=== PATIENT | female | born 1985 | race Caucasian/White ===

== ENCOUNTER 2019-08-13 23:34 | Emergency (ER) | payer SELFPAY ==
--- NOTE | 2019-08-13 23:49 | ER Document Report ---
ED Medical Screen (RME) - General Chief Complaint: Alcohol Withdrawl Stated Complaint: NEEDS MEDICAL CLEARANCE Time Seen by Provider: 08/13/19 23:44 - HPI Notes: 08/13/19 23:46 33 year old female to the ED with mobile crisis unit worker from [facility] for medical clearance. She was at [facility] trying to complete ETOH detox but blew a .41. SHe has a history of seizure with ETOH withdrawal. Thus, [facility] sent her here for medical clearance. She denies SI or HI. She does smokes. She also shoots heroin and her last use was today. She states she drinks a case of beer a day. I performed a medical screening on the patient and have determined she will need further evaluation and management by main side provider. I have placed orders to expedite her care [place].
[2019-08-13] MEDS ORDERED: ONDANSETRON 4 MG TAB.RAPDIS PO ONE (23:50)
[2019-08-13] MEDS ORDERED: NICOTINE 14 MG/24 HR PATCH.TD24 TD ONE (23:54)
[2019-08-14] MEDS ORDERED: NORMAL SALINE 1000 ML 1,000 ML IV ONE (00:25)
[2019-08-14] MEDS ORDERED: ONDANSETRON HCL INJ/PF 4 MG/2 ML SDV IV ONE (00:25)
[2019-08-14 01:08] LABS: ABSOLUTE BASOPHILS # (AUTO) 0.1 10^3/uL (0.0-0.2); ABSOLUTE EOSINOPHILS # (AUTO) 0.2 10^3/uL (0.0-0.6); ABSOLUTE LYMPHOCYTES (AUTO) 2.6 10^3/uL (0.5-4.7); ABSOLUTE NEUT (AUTO) 2.4 10^3/uL (1.7-8.2); BASOPHILS % (AUTO) 1.3 % (0-2); HEMATOCRIT 31.3 % (36.0-47.0); HEMOGLOBIN 10.2 g/dL (12.0-15.5); LYMPHOCYTES % (AUTO) 41.7 % (13-45); MEAN CORPUSCULAR HEMOGLOBIN 26.6 pg (27.0-33.4); MEAN CORPUSCULAR HGB CONC 32.4 g/dL (32.0-36.0); MEAN CORPUSCULAR VOLUME 82 fl (80-97); MONOCYTES % (AUTO) 15.7 % (3-13); PLATELET COUNT 189 10^3/uL (150-450); RED BLOOD COUNT 3.82 10^6/uL (3.72-5.28); RED CELL DISTRIBUTION WIDTH 18.2 % (11.5-14.0); SEGMENTED NEUTROPHILS % (AUTO) 38.3 % (42-78); TOTAL CELLS COUNTED % (AUTO) 100 %; WHITE BLOOD COUNT 6.3 10^3/uL (4.0-10.5)
[2019-08-14 01:41] LABS: ALBUMIN 4.1 g/dL (3.5-5.0); ALKALINE PHOSPHATASE 137 U/L (38-126); ANION GAP 9 (5-19); ASPARTATE AMINO TRANSFERASE 154 U/L (14-36); BILIRUBIN,DIRECT 0.2 mg/dL (0.0-0.4); BILIRUBIN,TOTAL 0.4 mg/dL (0.2-1.3); BLOOD UREA NITROGEN 8 mg/dL (7-20); CALCIUM 8.9 mg/dL (8.4-10.2); CARBON DIOXIDE 26 mmol/L (22-30); CHLORIDE 110 mmol/L (98-107); GLUCOSE 100 mg/dL (75-110); POTASSIUM 4.7 mmol/L (3.6-5.0); TOTAL PROTEIN 8.8 g/dL (6.3-8.2)
[2019-08-14 01:49] LABS: ALCOHOL 408 mg/dL (NONE DETECTED)
[2019-08-14 02:03] LABS: APPEARANCE,URINE CLEAR; BILIRUBIN,URINE NEGATIVE (NEGATIVE); COLOR,URINE YELLOW; GLUCOSE, URINE NEGATIVE (NEGATIVE); KETONES,URINE NEGATIVE (NEGATIVE); LEUKOCYTE ESTERASE,URINE NEGATIVE (NEGATIVE); NITRITE,URINE NEGATIVE (NEGATIVE); PROTEIN,URINE NEGATIVE (NEGATIVE); URINE SPECIFIC GRAVITY 1.011; UROBILINOGEN,URINE NEGATIVE mg/dL (<2.0)
[2019-08-14] MEDS ORDERED: HALOPERIDOL LACTATE INJ 5 MG/1 ML VIAL IM ONE (02:22)
[2019-08-14] MEDS ORDERED: LORAZEPAM INJ 2 MG/1 ML VIAL IM ONE (02:23)
--- NOTE | 2019-08-14 02:25 | ER Document Report ---
ED Substance Abuse / Acc. OD - General Chief Complaint: Alcohol Withdrawl Stated Complaint: NEEDS MEDICAL CLEARANCE Time Seen by Provider: 08/13/19 23:44 Information source: Patient Notes: Ms. Rubio is a 33 yo F w/ PMH alcohol abuse, heroin abuse and remote history of alcohol withdrawal seizures presenting to the ED after attempting to go to [facility] for rehab for abdominal pain and medical clearance. Patient states her abdominal pain has been going on for approximately a week now. She is had daily episodes of bilious vomiting at least 1-2 every morning. Pain does worsen with eating. She states she drinks approximately 30 beers daily sometimes more. She also uses heroin daily approximately 1-3 bags, last use was earlier today with one bag of "blue" heroin which is reportedly the highest concentration or stre ngth. Patient denies any chest pain, cough, shortness of breath. No fever or she reports subjective chills. She denies any dysuria or increased urinary frequency. She does endorse ongoing daily vomiting. She also endorses dark black stools daily. Patient denies any lightheadedness or blood in her vomitus. - Related Data Allergies/Adverse Reactions: No Known Allergies Allergy (Unverified 08/14/19 00:49) Past Medical History - Social History Smoking Status: Current Every Day Smoker Cigarette use (# per day): Yes - 1ppd Frequency of alcohol use: case of beer a day Drug Abuse: Heroin Family History: Reviewed & Not Pertinent Patient has suicidal ideation: No Patient has homicidal ideation: No Review of Systems - Review of Systems Constitutional: See HPI EENT: No symptoms reported Cardiovascular: No symptoms reported Respiratory: No symptoms reported Gastrointestinal: See HPI Genitourinary: No symptoms reported Female Genitourinary: No symptoms reported Musculoskeletal: No symptoms reported Skin: No symptoms reported Hematologic/Lymphatic: No symptoms reported Neurological/Psychological: No symptoms reported Physical Exam - Vital signs Vitals: Temp Pulse Resp BP Pulse Ox 98.1 F 83 18 119/81 97 08/13/19 23:47 08/13/19 23:47 08/13/19 23:47 08/13/19 23:47 08/13/19 23:47 Interpretation: Normal - General General appearance: Appears well, Alert - HEENT Head: Normocephalic, Atraumatic Eyes: Normal Pupils: PERRL - Respiratory Respiratory status: No respiratory distress Chest status: Nontender Breath sounds: Normal Chest palpation: Normal - Cardiovascular Rhythm: Regular Heart sounds: Normal auscultation Murmur: No - Abdominal Inspection: Normal Distension: No distension Bowel sounds: Normal Tenderness: Nontender Organomegaly: No organomegaly - Rectal Tenderness: No Stool: Heme negative - Brown stool guaiac negative Hemorrhoids: Internal - Back Back: Normal, Nontender - Extremities General upper extremity: Normal inspection, Nontender, Normal color, Normal ROM, Normal temperature General lower extremity: Normal inspection, Nontender, Normal color, Normal ROM, Normal temperature, Normal weight bearing. No: Harinder's sign - Neurological Neuro grossly intact: Yes Cognition: Normal Orientation: AAOx4 Wilson Coma Scale Eye Opening: Spontaneous Wilson Coma Scale Verbal: Oriented Davilla Coma Scale Motor: Obeys Commands Wilson Coma Scale Total: 15 Speech: Normal Motor strength normal: LUE, RUE, LLE, RLE Sensory: Normal - Psychological Associated symptoms: Normal affect, Normal mood - Skin Skin Temperature: Warm Skin Moisture: Dry Skin Color: Other - Track pelayo noted to the left dorsal forearm as well as left antecubital fossa. Patient also has bilateral leg wounds, a few track pelayo and diffuse turgor to bilateral legs. Course - Re-evaluation Re-evalutation: Patient is generally well-appearing and nontoxic. Initial vitals within normal limits. Differential diagnosis includes electrolyte abnormality, dehydration, alcohol intoxication, polysubstance abuse, GI bleed (less likely) CBC does not show significant leukocytosis or left shift. H&H is low however within stable limits without any indication to require transfusion. CMP notable for an significant electrolyte abnormalities. However her lipase is elevated a 99. U tox is positive for opiates consistent with patient's reported heroin use. Alcohol level was elevated at 408. Patient ordered for IV fluids and Zofran on arrival. 08/14/19 02:24 Per nursing, the patient is becoming increasingly agitated and ripped off all her EKG leads. Threatening to leave and threatening to her about her IV. Patient requesting something to sleep but has become more agitated. No evidence of acute withdrawal at this point in time. Will administer Haldol 5 mg IM as well as Ativan 2 mg IM for sedation. 08/14/19 03:38 I attempted to evaluate the patient and the patient was not found in her room. Apparently the patient had put on all her clothes and stepped out the side door to smoke a cigarette. All of her belongings including shoes and close will be placed in a patient personal's bag and removed from her room. Patient will be placed in a gown. She currently has an IV in place and is a known IVDU user. Patient will also be ordered for 50 of Benadryl IV push. She already received the Haldol and Ativan IM approximately 1 hour ago however they have yet to take effect. 08/14/19 03:43 Attempted to admit patient to Dr. Anderson for acute pancreatitis. He states that he does not feel that this is acute pancreatitis as it is not truly 3 times the upper limit of normal. I explained further that the patient cannot be medically cleared to go to detox for alcohol rehab given her elevated lipase. He recommended the patient be tried on clear liquids. 08/14/19 07:01 Patient signed out pending reevaluation and sobriety. Repeat lipase had decreased from 8 99-8 20. Patient was given multiple medications in an effort to help her sleep. Initially she was given Haldol and Ativan IM. Later she was given Benadryl IV. She still was unable to sleep so she was later given trazodone p.o. Patient signed out pending reassessment of alcohol level which will need to be less than 200 for her to go to a rehab facility. Alcohol level ordered for 8 AM. Patient also ordered for discharge planning. - Vital Signs Vital signs: Temp Pulse Resp BP Pulse Ox 98.1 F 98 12 100/68 100 08/14/19 05:04 08/14/19 05:04 08/14/19 05:04 08/14/19 05:04 08/14/19 05:04 - Laboratory Result Diagrams: 08/14/19 00:58 08/14/19 00:58 Laboratory results interpreted by me: 08/14/19 08/14/19 08/14/19 00:58 00:58 01:26 Hgb 10.2 L Hct 31.3 L MCH 26.6 L RDW 18.2 H Mcduffie % (Auto) 15.7 H Seg Neutrophils % 38.3 L Sodium 145.2 H Chloride 110 H AST 154 H Alkaline Phosphatase 137 H Total Protein 8.8 H Lipase 899.9 H Urine Blood SMALL H Serum Alcohol 408 H* 08/14/19 06:15 Hgb Hct MCH RDW Mcduffie % (Auto) Seg Neutrophils % Sodium Chloride AST Alkaline Phosphatase Total Protein Lipase 820.3 H Urine Blood Serum Alcohol Discharge - Discharge Clinical Impression: Alcohol intoxication, Pancreatitis, Heroin abuse Condition: Good Disposition: OTHER
[2019-08-14 02:40] LABS: URINE AMPHETAMINES SCREEN NEGATIVE; URINE BARBITURATES SCREEN NEGATIVE; URINE BENZODIAZEPINES SCREEN NEGATIVE; URINE COCAINE SCREEN NEGATIVE; URINE MARIJUANA (THC) SCREEN NEGATIVE; URINE METHADONE SCREEN NEGATIVE; URINE PHENCYCLIDINE SCREEN NEGATIVE
[2019-08-14] MEDS ORDERED: DIPHENHYDRAMINE HCL 50 MG/ML VIAL IV ONE (03:38)
[2019-08-14] MEDS ORDERED: TRAZODONE HCL 50 MG TABLET PO ONE (04:20)
[2019-08-14 10:50] VITALS: BP 124/73
== END 2019-08-14 11:12 | disposition other institution (70) ==
LOC: ER 23:34
DX: F10.129 Alcohol abuse with intoxication, unspecified (principal); F11.10 Opioid abuse, uncomplicated; K85.90 Acute pancreatitis without necrosis or infection, unspecified; F17.210 Nicotine dependence, cigarettes, uncomplicated
CPT/HCPCS: 36415; 80307 ×2; 83690; 85025; 81025; 80053; 81001; J1200; S0119; J1630; J2060; J2405; J7030; 96361; 96372; 96374; 96375; 99284